=== PATIENT | male | born 1990 | race Two or more races ===

== ENCOUNTER 2017-07-29 22:15 | Emergency (ER) | payer MEDICAID, SELFPAY ==
[2017-07-29] MEDS ORDERED: Tetracaine 0.5% OPHTH SOLN/PF 4 ML BOT ONE (22:42)
== END 2017-07-29 23:13 | disposition home or self-care (01) ==
LOC: MADERS 22:15
DX: H10.9 Unspecified conjunctivitis (principal); G40.909 Epilepsy, unspecified, not intractable, without status epilepticus
CPT/HCPCS: 99283

== ENCOUNTER 2017-10-16 01:44 | Emergency (ER) | payer OTHER, SELFPAY ==
[2017-10-16] MEDS ORDERED: Morphine 10 MG/ML VIAL ONE ×2 (03:08→06:22)
[2017-10-16] MEDS ORDERED: Diazepam 5 MG TAB ONE (06:22)
[2017-10-16] MEDS ORDERED: Naproxen 500 MG TAB ONE (06:22)
--- NOTE | 2017-10-16 08:17 | CT ---
PRELIMINARY REPORT/[facility]/EMERGENTY AFTER-HOURS PROCEDURE CT Thoracic Spine Without Intravenous Contrast CLINICAL HISTORY: 27 years old, male; Injury or trauma; Injury Hit on back with 5 in pipe at work; Work related; Initia l encounter; Sprain or strain; Injury date: 10/16/17 TECHNIQUE: Axial computed tomography images of the thoracic spine without intravenous contrast. All CT scans at this facility use at least one of these dose optimization techniques: automated exposure control; mA and/or kV adjustment per patient size (includes targeted exams where dose is matched to clinical indication); or iterative reconstruction. Coronal and sagittal reformatted images were created and re viewed. COMPARISON: No relevant prior studies available. FINDINGS: Vertebrae: Mild anterior wedging at T12 without fracture line. Superior endplate Schmorl's nodes at T 7. Discs/spinal canal/neural foramina: Calcified disc protrusion at T8/T9 with mild spinal canal stenosi s. Soft tissues: Unremarkable. IMPRESSION: 1. Mild anterior wedging at T12 without fracture line. 2. Superior endplate Schmorl's nodes at T7. 3. Mild spinal canal stenosis at T8/T9 due to calcified disc protrusion. Thank you for allowing us to participate in the care of your patient. Dictated and Authenticated by: Brandt Good MD 10/16/2017 4:51 AM Central Time ([place] & [place]) FINAL REPORT CT THORACIC SPINE WITHOUT CONTRAST: HISTORY: The patient was hit in the back with a 5 inch pipe. Posttraumatic pain. COMPARISON: None. TECHNIQUE: CT thoracic spine is performed without contrast. Sagittal and coronal reformatted images are submitt ed for interpretation. FINDINGS: There is a Schmorl's node along the superior end plate of T7. Additional minimal irregularity involv ing the superior end plate of T4 and T5 is noted. There is no significant loss of vertebral body hei ght. There is minimal anterior wedging of T12 without evidence of a fracture line. Better interroga tion with thoracic spine MRI may beneficial to assess for bone edema. There is mild central canal stenosis due to a calcified disk protrusion at T8-T9. This report is in agreement with the preliminary report by [facility]. IMPRESSION: Mild anterior wedge at T12 without evidence of fracture line. Consider MRI for further interrogation if clinically warranted. CODE T POS: [facility]
--- NOTE | 2017-10-16 08:18 | CT ---
PRELIMINARY REPORT/[facility]/EMERGENTY AFTER-HOURS PROCEDURE CT Lumbar Spine Without Intravenous Contrast CLINICAL HISTORY: 27 years old, male; Injury or trauma; Injury Hit by 5 in pipe on back at work; Work related; Initial encounter; Sprain or strain, lumbar ligaments; Injury date: 10/16/17; Injury details: R/O back pain TECHNIQUE: Axial computed tomography images of the lumbar spine without intravenous contrast. All CT scans at [facility] use at least one of these dose optimization techniques: automated exposure control; mA an d/or kV adjustment per patient size (includes targeted exams where dose is matched to clinical indication); or iterative reconstruction. Coronal and sagittal reformatted images were created and re viewed. COMPARISON: No relevant prior studies available. FINDINGS: Vertebrae: Bilateral L3 pars defects. No spondylolisthesis. Discs/spinal canal/neural foramina: No high grade spinal canal stenosis. Soft tissues: Unremarkable. IMPRESSION: No acute findings. Thank you for allowing us to participate in the care of your patient. Dictated and Authenticated by: Brandt Good MD 10/16/2017 4:44 AM Central Time ([place] & [place]) FINAL REPORT CT LUMBAR SPINE WITHOUT CONTRAST: Date: 10/16/17 HISTORY: Patient struck in the back by a 5 pipe at work. Post-traumatic pain. Evaluate for fracture. COMPARISON: None. TECHNIQUE: Lumbar spine CT is performed without contrast. Coronal and sagittal reformatted images are submitted for interpretation. FINDINGS: There are bilateral pars defects at L3 without associated spondylolisthesis. There is sclerosis sugge sting a chronic process. Lumbar spine vertebral body heights are maintained. No malalignment. There is no abnormality in the retroperitoneal structures. This report is in agreement with the preliminary report by [facility]. POS: [facility]
== END 2017-10-16 06:30 | disposition home or self-care (01) ==
LOC: MADERS 01:44
DX: S30.0XXA Contusion of lower back and pelvis, initial encounter (principal); G40.909 Epilepsy, unspecified, not intractable, without status epilepticus; W22.8XXA Striking against or struck by other objects, initial encounter
CPT/HCPCS: 72128; 72131; 96374; 96376; J2270

== ENCOUNTER 2017-11-02 22:17 | Emergency (ER) | payer SELFPAY ==
[~2017-11-02 22:17] MED LIST: Sodium Chloride 0.9% 1,000 ML BAG ONE; Sodium Chloride 0.9% 100 ML BAG ONE
[2017-11-02] MEDS ORDERED: Lorazepam 2 MG/ML VIAL ONE (22:33)
[2017-11-02] MEDS ORDERED: Phenytoin Sodium 100 MG/2 ML VIAL ONE (23:24)
[2017-11-02 23:26] LABS: Anion Gap 19 mmol/L (10-20); BUN (Urea Nitrogen) 10 mg/dL (8.9-20.6); Calc. Creatinine Clearance 0 mL/min (70-130); Calcium 9.8 mg/dL (7.8-10.44); Carbon Dioxide 22 mmol/L (22-29); Chloride 104 mmol/L (98-107); Estimated GFR-MDRD 67; Glucose 125 mg/dL (70-105); Potassium 3.7 mmol/L (3.5-5.1); Sodium 141 mmol/L (136-145)
[2017-11-02 23:39] LABS: #Basophils 0.1 thou/uL (0.0-0.2); #Eosinphils 0.1 thou/uL (0.0-0.7); #Lymphocytes 2.5 thou/uL (1.20-3.40); #Monocytes 0.6 thou/uL (0.11-0.59); #Neutrophils 9.2 thou/uL (1.40-6.50); %Basophils 1.2 % (0.0-1.0); %Eosinophils 1.2 % (0.0-10.0); %Lymphocytes 19.9 % (21.0-51.0); %Monocytes 4.9 % (0.0-10.0); %Neutrophils 72.8 % (42.0-75.0); Hemoglobin 14.7 g/dL (14.0-18.0); Mean Corpuscular HGB CONC 31.6 g/dL (32.0-36.0); Mean Corpuscular Hemoglobin 21.9 pg (27.0-31.0); Mean Corpuscular Volume 69.3 fL (78.0-98.0); Mean Platelet Volume 7.5 fL (7.4-10.4); Platelet Count 344 thou/uL (130-400); RBC Distribution Width 13.7 % (11.5-14.5); Red Blood Cell (RBC) Count 6.69 mill/uL (4.70-6.10); White Blood Cell (WBC) Count 12.7 thou/uL (4.8-10.8)
[2017-11-02 23:40] LABS: Anisocytosis MARKED = >30 cells (100X) (0-5/hpf); Microcytosis MARKED = >30 cells (100X) (0-5/hpf)
[2017-11-03 00:45] LABS: Bilirubin Negative (Negative); Blood, Urine Negative (Negative); Clarity Clear (Clear); Glucose, Urine (Dipstick) Negative (Negative); Leukocyte Negative (Negative); Nitrite Negative (Negative); Protein, Urine (Dipstick) Negative (Neg-Trace)
[2017-11-03 00:55] LABS: Amphetamine Not Detected (NotDetected); Barbiturates Screen Not Detected (NotDetected); Benzodiazepine Screen Not Detected (NotDetected); Cocaine Metabolite Screen Not Detected (NotDetected); Medtox Control Line Valid? VALID (VALID); Methadone Not Detected (NotDetected); Methamphetamine Not Detected (NotDetected); Opiate Screen Not Detected (NotDetected); Oxycodone Screen Not Detected (NotDetected); Phencyclidine (PCP) Not Detected (NotDetected); THC/Cannabinoid Screen Not Detected (NotDetected); Tricyclic Screen Not Detected (NotDetected)
== END 2017-11-03 00:45 | disposition home or self-care (01) ==
LOC: MADERS 22:17
DX: G40.909 Epilepsy, unspecified, not intractable, without status epilepticus (principal)
CPT/HCPCS: 36415; 80048; 80306; 81003; 85025; 96365; 96372; J1165; J2060; J7050

== ENCOUNTER 2019-06-18 05:33 | Emergency (ER) | payer SELFPAY ==
[2019-06-18] MEDS ORDERED: Aspirin Chewable 81 MG TAB ONE (06:23)
[2019-06-18] MEDS ORDERED: Nitroglycerin 2% Ointment 1 INCH/1 GM Packet ONE (06:23)
[2019-06-18 06:37] LABS: #Basophils 0.1 thou/uL (0.0-0.2); #Eosinphils 0.3 thou/uL (0.0-0.7); #Lymphocytes 3.9 thou/uL (1.20-3.40); #Monocytes 0.9 thou/uL (0.11-0.59); #Neutrophils 5.3 thou/uL (1.40-6.50); %Basophils 0.9 % (0.0-1.0); %Eosinophils 2.3 % (0.0-10.0); %Lymphocytes 37.7 % (21.0-51.0); %Monocytes 8.8 % (0.0-10.0); %Neutrophils 50.3 % (42.0-75.0); Hemoglobin 13.5 g/dL (14.0-18.0); Hypochromia SLIGHT = 6-15 cells (100X) (0-5/hpf); MDiff Complete? YES; Mean Corpuscular Hemoglobin 20.8 pg (27.0-31.0); Mean Corpuscular Volume 71.9 fL (78.0-98.0); Mean Platelet Volume 8.6 fL (7.4-10.4); Microcytosis MODERATE=15-30 cells (100X) (0-5/hpf); Platelet Count 291 thou/uL (130-400); RBC Distribution Width 13.9 % (11.5-14.5); Red Blood Cell (RBC) Count 6.46 mill/uL (4.70-6.10); White Blood Cell (WBC) Count 10.5 thou/uL (4.8-10.8)
[2019-06-18 06:48] LABS: ALT (SGPT) 34 U/L (8-55); AST (SGOT) 24 U/L (5-34); Alkaline Phosphatase 52 U/L (40-110); Anion Gap 17 mmol/L (10-20); BUN (Urea Nitrogen) 12 mg/dL (8.9-20.6); Bilirubin, Total 0.8 mg/dL (0.2-1.2); Calc. Creatinine Clearance 0 mL/min (70-130); Carbon Dioxide 22 mmol/L (22-29); Chloride 107 mmol/L (98-107); Estimated GFR-MDRD Greater than 90; Globulin 2.6 g/dL (2.4-3.5); Glucose 104 mg/dL (70-105); Potassium 4.3 mmol/L (3.5-5.1); Protein, Total 6.6 g/dL (6.0-8.3); Sodium 142 mmol/L (136-145)
[2019-06-18 07:44] LABS: Amphetamine Not Detected (NotDetected); Barbiturates Screen Not Detected (NotDetected); Benzodiazepine Screen Not Detected (NotDetected); Cocaine Metabolite Screen Not Detected (NotDetected); Medtox Control Line Valid? VALID (VALID); Methadone Not Detected (NotDetected); Methamphetamine Not Detected (NotDetected); Opiate Screen Not Detected (NotDetected); Oxycodone Screen Not Detected (NotDetected); Phencyclidine (PCP) Not Detected (NotDetected); THC/Cannabinoid Screen Not Detected (NotDetected); Tricyclic Screen Not Detected (NotDetected)
--- NOTE | 2019-06-18 08:15 | RAD ---
Chest one view HISTORY: Chest pain. FINDINGS: Cardiac silhouette is magnified by projection. Pulmonary vasculature is upper limits of nor mal and accentuated by shallow inspiration. Mediastinum is midline. No lobar consolidation or evidence of pneumothorax. IMPRESSION: No active cardiopulmonary abnormalities are demonstrated.
== END 2019-06-18 08:41 | disposition home or self-care (01) ==
LOC: MADERS 05:33
DX: R07.9 Chest pain, unspecified (principal); G40.909 Epilepsy, unspecified, not intractable, without status epilepticus
CPT/HCPCS: 36415; 71045; 80053; 80306; 83880; 84484; 85025; 93005

== ENCOUNTER 2021-01-22 15:50 | Emergency (ER) | payer SELFPAY ==
[~2021-01-22 15:50] MED LIST changes: +Iopamidol 370 76% 125 ML VIAL FS ONE; -Sodium Chloride 0.9% 1,000 ML BAG ONE
[2021-01-22] MEDS ORDERED: Ketorolac Tromethamine 30 MG/ML VIAL ONE (16:17)
[2021-01-22 16:52] LABS: Bilirubin Negative (Negative); Blood, Urine Negative (Negative); Clarity Clear (Clear); Glucose, Urine (Dipstick) Negative (Negative); Ketone, Urine Negative (Negative); Leukocyte Negative (Negative); Nitrite Negative (Negative); Protein, Urine (Dipstick) Trace mg/dL (Neg-Trace)
[2021-01-22 16:54] LABS: #Basophils 0.2 thou/uL (0.0-0.2); #Eosinphils 0.1 thou/uL (0.0-0.7); #Lymphocytes 3.1 thou/uL (1.20-3.40); #Neutrophils 9.1 thou/uL (1.40-6.50); %Basophils 1.2 % (0.0-1.0); %Eosinophils 0.7 % (0.0-10.0); %Lymphocytes 22.7 % (21.0-51.0); %Monocytes 7.8 % (0.0-10.0); %Neutrophils 67.6 % (42.0-75.0); Hemoglobin 14.6 g/dL (14.0-18.0); Mean Corpuscular HGB CONC 29.4 g/dL (32.0-36.0); Mean Corpuscular Hemoglobin 20.9 pg (27.0-31.0); Mean Corpuscular Volume 71.3 fL (78.0-98.0); Platelet Count 653 thou/uL (130-400); RBC Distribution Width 13.2 % (11.5-14.5); Red Blood Cell (RBC) Count 6.96 mill/uL (4.70-6.10); White Blood Cell (WBC) Count 13.4 thou/uL (4.8-10.8)
[2021-01-22 16:55] LABS: Anisocytosis SLIGHT = 6-15 cells (100X) (0-5/hpf); MDiff Complete? YES; Microcytosis SLIGHT = 6-15 cells (100X) (0-5/hpf); Platelet Morphology Comment Appears Increased
[2021-01-22 16:56] LABS: ALT (SGPT) 49 U/L (8-55); AST (SGOT) 30 U/L (5-34); Albumin 3.6 g/dL (3.5-5.0); Alkaline Phosphatase 52 U/L (40-110); Anion Gap 16 mmol/L (10-20); BUN (Urea Nitrogen) 7 mg/dL (8.9-20.6); Calc. Creatinine Clearance 0 mL/min (70-130); Calcium 9.6 mg/dL (7.8-10.44); Carbon Dioxide 24 mmol/L (22-29); Chloride 102 mmol/L (98-107); Globulin 4.4 g/dL (2.4-3.5); Glucose 120 mg/dL (70-105); Potassium 4.3 mmol/L (3.5-5.1); Sodium 138 mmol/L (136-145)
[2021-01-22] MEDS ORDERED: Pantoprazole 40 MG VIAL ONE (18:56)
[2021-01-22] MEDS ORDERED: Heparin 25,000 units/D5W 500 ML ONE (19:41)
[2021-01-22] MEDS ORDERED: Heparin 10,000 UNITS/ 10 ML VIAL ONE (19:41)
[2021-01-22 19:42] LABS: PTT 29.9 sec (22.9-36.1); Prothrombin Time 13.3 sec (12.0-14.7)
[2021-01-22 20:38] LABS: SARS-CoV-2 NAA Rapid Test DETECTED (NotDetected)
== END 2021-01-22 21:17 | disposition short-term general hospital (02) ==
LOC: MADERS 15:50
DX: U07.1 COVID-19 (principal); J12.82 Pneumonia due to coronavirus disease 2019; I26.99 Other pulmonary embolism without acute cor pulmonale; G47.30 Sleep apnea, unspecified; G40.909 Epilepsy, unspecified, not intractable, without status epilepticus
CPT/HCPCS: 71275; 74176; 80053; 81003; 82274; 85025; 85610; 85730; 96365; 96375; 96376; C9113; J1644; J1885; J3490; Q9967; U0002

== ENCOUNTER 2021-05-03 22:15 | Emergency (ER) | payer BC ==
[2021-05-03] MEDS ORDERED: Iopamidol 370 76% 125 ML VIAL FS ONE (22:16)
[2021-05-03] MEDS ORDERED: Sodium Chloride 0.9% 100 ML BAG FS ONE (22:16)
== END 2021-05-04 00:53 | disposition home or self-care (01) ==
LOC: MADERS 22:15
DX: H93.A1 Pulsatile tinnitus, right ear (principal); Z86.16 Personal history of COVID-19
CPT/HCPCS: 70450; 70496; Q9967

== ENCOUNTER 2021-11-05 17:46 | Emergency (ER) | payer BC ==
[2021-11-05] MEDS ORDERED: Sodium Chloride 0.9% 1,000 ML ONE (18:59)
[2021-11-05 19:06] LABS: Mean Corpuscular HGB CONC 28.8 g/dL (32.0-36.0); Mean Corpuscular Hemoglobin 20.9 pg (27.0-31.0); Mean Corpuscular Volume 72.6 fL (78.0-98.0); Mean Platelet Volume 9.9 fL (7.4-10.4); Platelet Count 285 thou/uL (130-400); Red Blood Cell (RBC) Count 6.71 mill/uL (4.70-6.10); White Blood Cell (WBC) Count 8.9 thou/uL (4.8-10.8)
[2021-11-05 19:16] LABS: Anion Gap 13 mmol/L (10-20); BUN (Urea Nitrogen) 15 mg/dL (8.9-20.6); CK (CPK) 301 U/L (30-200); Calc. Creatinine Clearance 0 mL/min (70-130); Calcium 9.5 mg/dL (7.8-10.44); Carbon Dioxide 28 mmol/L (22-29); Chloride 106 mmol/L (98-107); Estimated GFR 68; Glucose 91 mg/dL (70-105); Potassium 4.5 mmol/L (3.5-5.1); Sodium 142 mmol/L (136-145)
[2021-11-05 19:24] LABS: #Basophils 0.1 thou/uL (0.0-0.2); #Eosinphils 0.3 thou/uL (0.0-0.7); #Lymphocytes 2.9 thou/uL (1.20-3.40); #Monocytes 0.8 thou/uL (0.11-0.59); #Neutrophils 4.8 thou/uL (1.40-6.50); %Basophils 1.5 % (0.0-1.0); %Eosinophils 3.6 % (0.0-10.0); %Lymphocytes 32.1 % (21.0-51.0); %Neutrophils 53.7 % (42.0-75.0); Hypochromia SLIGHT = 6-15 cells (100X) (0-5/hpf); MDiff Complete? YES; Microcytosis SLIGHT = 6-15 cells (100X) (0-5/hpf); Platelet Morphology Comment Appears Adequate
== END 2021-11-05 20:00 | disposition home or self-care (01) ==
LOC: MADERS 17:46
DX: T67.5XXA Heat exhaustion, unspecified, initial encounter (principal); G40.909 Epilepsy, unspecified, not intractable, without status epilepticus; G47.30 Sleep apnea, unspecified; F17.290 Nicotine dependence, other tobacco product, uncomplicated; Z86.711 Personal history of pulmonary embolism
CPT/HCPCS: 80048; 82550; 85025; 96360; J7050

== ENCOUNTER 2022-10-30 07:48 | Emergency (ER) | payer SELFPAY ==
[2022-10-30] MEDS ORDERED: Acetaminophen 500 MG TAB ONE (08:51)
[2022-10-30] MEDS ORDERED: Ondansetron ODT 4 MG TAB ONE (08:59)
[2022-10-30 09:49] LABS: SARS-CoV-2 NAA Rapid Test DETECTED (NotDetected)
[2022-10-30 10:22] LABS: ALT (SGPT) 24 U/L (8-55); AST (SGOT) 21 U/L (5-34); Albumin 4.3 g/dL (3.5-5.0); Alkaline Phosphatase 53 U/L (40-110); Anion Gap 15 mmol/L (10-20); BUN (Urea Nitrogen) 10 mg/dL (8.9-20.6); Bilirubin, Total 1.4 mg/dL (0.2-1.2); Calc. Creatinine Clearance 0 mL/min (70-130); Calcium 9.5 mg/dL (7.8-10.44); Carbon Dioxide 25 mmol/L (22-29); Chloride 102 mmol/L (98-107); Estimated GFR 75; Glucose 115 mg/dL (70-105); Magnesium 1.7 mg/dL (1.6-2.6); Potassium 4.5 mmol/L (3.5-5.1); Protein, Total 7.3 g/dL (6.0-8.3); Sodium 137 mmol/L (136-145)
[2022-10-30 10:36] LABS: Hemoglobin 15.1 g/dL (14.0-18.0); Mean Corpuscular HGB CONC 30.7 g/dL (32.0-36.0); Mean Corpuscular Volume 71.6 fl (78.0-98.0); Mean Platelet Volume 9.5 fL (7.4-10.4); Platelet Count 282 10x3/uL (130-400); RBC Distribution Width 14.6 % (11.5-14.5); Red Blood Cell (RBC) Count 6.86 mill/uL (4.70-6.10); White Blood Cell (WBC) Count 11.3 10x3/uL (4.8-10.8)
[2022-10-30 10:37] LABS: Anisocytosis SLIGHT = 6-15 cells (100X) (0-5/hpf); Band 2 % (5-11); Lymphocytes 14 % (21-51); MDiff Complete? YES; Manual Diff?? YES; Monocytes 4 % (0-10); Neutrophil 80 % (42-75); Platelet Adequacy Comment Appears Adequate
== END 2022-10-30 11:00 | disposition home or self-care (01) ==
LOC: MADERS 07:48
DX: U07.1 COVID-19 (principal); R11.2 Nausea with vomiting, unspecified; F17.290 Nicotine dependence, other tobacco product, uncomplicated
CPT/HCPCS: 71046; 80053; 83735; 85025; 85379; 87081; 87430; 99284; Q0162

== ENCOUNTER 2023-02-20 20:59 | Emergency (ER) | payer SELFPAY ==
[~2023-02-20 20:59] MED LIST changes: +Iopamidol 370 76% 100 ML VIAL ONE; -Iopamidol 370 76% 125 ML VIAL FS ONE; -Sodium Chloride 0.9% 100 ML BAG ONE
[2023-02-20] MEDS ORDERED: Ketorolac Tromethamine 30 MG/ML VIAL ONE (21:51)
[2023-02-20] MEDS ORDERED: Sodium Chloride 0.9% 1,000 ML ONE (21:51)
[2023-02-20] MEDS ORDERED: Ondansetron PF 4 MG/2 ML Vial ONE (21:51)
[2023-02-20 22:02] LABS: Bilirubin Negative (Negative); Blood, Urine Negative (Negative); Clarity Clear (Clear); Glucose, Urine (Dipstick) Negative (Negative); Ketone, Urine Negative (Negative); Leukocyte Negative (Negative); Nitrite Negative (Negative); Protein, Urine (Dipstick) Negative (Neg-Trace); Specific Gravity, Urine 1.025 (1.005-1.030)
[2023-02-20 22:03] LABS: CAUTI Indications for Culture Dysuria,urgency,freq
[2023-02-20 22:04] LABS: Bacteria/HPF Rare-Few HPF (None Seen); RBC/HPF 0-3 HPF (0-3); Squamous Epithelial 0-3 HPF (0-3); WBC/HPF 0-3 HPF (0-3)
[2023-02-20 22:05] LABS: Urine Culture Reflex No No
[2023-02-20 22:28] LABS: ALT (SGPT) 26 U/L (8-55); AST (SGOT) 26 U/L (5-34); Albumin 4.1 g/dL (3.5-5.0); Alkaline Phosphatase 45 U/L (40-110); Anion Gap 16 mmol/L (10-20); BUN (Urea Nitrogen) 14 mg/dL (8.9-20.6); Calc. Creatinine Clearance 0 mL/min (70-130); Calcium 9.2 mg/dL (7.8-10.44); Carbon Dioxide 25 mmol/L (22-29); Chloride 103 mmol/L (98-107); Estimated GFR 73; Globulin 3.2 g/dL (2.4-3.5); Glucose 79 mg/dL (70-105); Protein, Total 7.3 g/dL (6.0-8.3); Sodium 140 mmol/L (136-145)
[2023-02-20 22:32] LABS: #Basophils 0.1 thou/uL (0.0-0.2); #Eosinphils 0.2 thou/uL (0.0-0.7); #Lymphocytes 3.1 thou/uL (1.20-3.40); #Monocytes 0.9 thou/uL (0.11-0.59); #Neutrophils 5.1 thou/uL (1.40-6.50); %Basophils 1.5 % (0.0-1.0); %Monocytes 9.8 % (0.0-10.0); %Neutrophils 53.6 % (42.0-75.0); Anisocytosis SLIGHT = 6-15 cells (100X) (0-5/hpf); Hematocrit 49.1 % (42.0-52.0); Hemoglobin 14.4 g/dL (14.0-18.0); Hypochromia SLIGHT = 6-15 cells (100X) (0-5/hpf); MDiff Complete? YES; Mean Corpuscular HGB CONC 29.2 g/dL (32.0-36.0); Mean Corpuscular Hemoglobin 21.8 pg (27.0-31.0); Mean Corpuscular Volume 74.4 fl (78.0-98.0); Mean Platelet Volume 9.2 fL (7.4-10.4); Microcytosis SLIGHT = 6-15 cells (100X) (0-5/hpf); Platelet Adequacy Comment Appears Adequate; Platelet Count 273 10x3/uL (130-400); RBC Distribution Width 14.6 % (11.5-14.5); White Blood Cell (WBC) Count 9.5 10x3/uL (4.8-10.8)
== END 2023-02-20 23:00 | disposition home or self-care (01) ==
LOC: MADERS 20:59
DX: R10.32 Left lower quadrant pain (principal); R30.0 Dysuria; R11.0 Nausea; F17.290 Nicotine dependence, other tobacco product, uncomplicated
CPT/HCPCS: 74177; 80053; 81001; 85025; 96361; 96374; 96375; J1885; J2405; J7050; Q9967

== ENCOUNTER 2023-04-20 10:45 | Emergency (ER) | payer SELFPAY | END 2023-04-20 11:38 | disposition home or self-care (01) | LOC: MADERS 10:45 | DX: S80.02XA Contusion of left knee, initial encounter (principal); F17.290 Nicotine dependence, other tobacco product, uncomplicated; Z86.711 Personal history of pulmonary embolism; W23.0XXA Caught, crushed, jammed, or pinched between moving objects, initial encounter ==

== ENCOUNTER 2023-06-09 17:28 | Emergency (ER) | payer SELFPAY ==
[2023-06-09] MEDS ORDERED: Ketorolac Tromethamine 30 MG (1 mL) VIAL ONE (17:48)
== END 2023-06-09 18:10 | disposition home or self-care (01) ==
LOC: MADERS 17:28
DX: K08.89 Other specified disorders of teeth and supporting structures (principal); F17.290 Nicotine dependence, other tobacco product, uncomplicated; Z55.6 Problems related to health literacy
CPT/HCPCS: 64400; 96372; J1885

== ENCOUNTER 2023-08-31 23:50 | Emergency (ER) | payer OTHER, SELFPAY ==
[2023-09-01 00:41] LABS: ALT (SGPT) 27 U/L (8-55); AST (SGOT) 25 U/L (5-34); Albumin 4.1 g/dL (3.5-5.0); Alkaline Phosphatase 47 U/L (40-110); Anion Gap 19 mmol/L (10-20); BUN (Urea Nitrogen) 12 mg/dL (8.9-20.6); Bilirubin, Total 0.8 mg/dL (0.2-1.2); Calc. Creatinine Clearance 0 mL/min (70-130); Calcium 9.5 mg/dL (7.8-10.44); Chloride 107 mmol/L (98-107); Estimated GFR 67; Globulin 2.8 g/dL (2.4-3.5); Glucose 117 mg/dL (70-105); Potassium 3.8 mmol/L (3.5-5.1); Protein, Total 6.9 g/dL (6.0-8.3); Sodium 141 mmol/L (136-145); Troponin I Less than 0.010 ng/mL (< 0.028)
[2023-09-01 00:43] LABS: Acetaminophen Less than 10 mcg/mL (10.0-30.0); Alcohol 53.9 mg/dL (Less than 10); CK (CPK) 392 U/L (30-200); Lipase 27 U/L (8-78); Magnesium 1.8 mg/dL (1.6-2.6); Salicylate Less than 8.0 mg/dL (15.0-30.0)
[2023-09-01] MEDS ORDERED: Sodium Chloride 0.9% 1,000 ML ONE (00:45)
[2023-09-01 00:48] LABS: #Basophils 0.1 thou/uL (0.0-0.2); #Eosinphils 0.3 thou/uL (0.0-0.7); #Monocytes 0.4 thou/uL (0.11-0.59); #Neutrophils 4.8 thou/uL (1.40-6.50); %Basophils 1.3 % (0.0-1.0); %Eosinophils 2.7 % (0.0-10.0); %Lymphocytes 41.7 % (21.0-51.0); %Monocytes 4.1 % (0.0-10.0); %Neutrophils 50.1 % (42.0-75.0); Anisocytosis SLIGHT = 6-15 cells (100X) (0-5/hpf); Hematocrit 48.3 % (42.0-52.0); Hemoglobin 14.3 g/dL (14.0-18.0); MDiff Complete? YES; Mean Corpuscular HGB CONC 29.6 g/dL (32.0-36.0); Mean Corpuscular Hemoglobin 21.2 pg (27.0-31.0); Mean Corpuscular Volume 71.5 fl (78.0-98.0); Mean Platelet Volume 7.3 fL (7.4-10.4); Platelet Adequacy Comment Appears Adequate; Platelet Count 320 10x3/uL (130-400); RBC Distribution Width 14.8 % (11.5-14.5); Red Blood Cell (RBC) Count 6.76 mill/uL (4.70-6.10); Target Cells SLIGHT = 2-5 cells (100X) (0-1/hpf); White Blood Cell (WBC) Count 9.5 10x3/uL (4.8-10.8)
[2023-09-01 00:49] LABS: Carbon Dioxide 19 mmol/L (22-29)
[2023-09-01] MEDS ORDERED: Sodium Chloride 0.9% 2,000 ML ONE (01:08)
[2023-09-01] MEDS ORDERED: Ipratropium/Albuterol 3 ML NEB ONE (01:23)
[2023-09-01] MEDS ORDERED: methylPREDNISolone Sod Succ/PF 125 MG/2 ML VIAL ONE (01:24)
[2023-09-01 02:35] LABS: Amphetamine Not Detected (NotDetected); Barbiturates Screen Not Detected (NotDetected); Benzodiazepine Screen Not Detected (NotDetected); Cocaine Metabolite Screen Not Detected (NotDetected); Methadone Not Detected (NotDetected); Methamphetamine Not Detected (NotDetected); Opiate Screen Not Detected (NotDetected); Oxycodone Screen Not Detected (NotDetected); Phencyclidine (PCP) Not Detected (NotDetected); THC/Cannabinoid Screen Not Detected (NotDetected); Tricyclic Screen Not Detected (NotDetected)
[2023-09-01 03:12] LABS: Lactic Acid 1.7 mmol/L (0.5-2.2)
[2023-09-01 03:23] LABS: Troponin I Less than 0.010 ng/mL (< 0.028)
== END 2023-09-01 03:48 | disposition home or self-care (01) ==
LOC: MADERS 23:50
DX: E86.0 Dehydration (principal); N17.9 Acute kidney failure, unspecified; J98.8 Other specified respiratory disorders; F17.290 Nicotine dependence, other tobacco product, uncomplicated
CPT/HCPCS: 71275; 80053; 80306; 80307; 82550; 83605; 83690; 83735; 83880; 84484; 85025; 85379; 93005; 96361; 96374; J2930; J7050; J7620

== ENCOUNTER 2023-12-09 19:28 | Emergency (ER) | payer OTHER ==
[2023-12-09] MEDS ORDERED: Ibuprofen 600 MG TAB ONE (20:09)
[2023-12-09 20:45] LABS: SARS-CoV-2 E Target Negative; SARS-CoV-2 N2 Target Negative; SARS-CoV-2 NAA Rapid Test Not Detected (NotDetected); SARS-CoV-2 RdRP gene Negative
== END 2023-12-09 21:17 | disposition home or self-care (01) ==
LOC: MADERS 19:28
DX: B34.9 Viral infection, unspecified (principal); F17.290 Nicotine dependence, other tobacco product, uncomplicated
CPT/HCPCS: 71045; 87804; U0002

== ENCOUNTER 2024-04-04 16:04 | Emergency (ER) | payer OTHER | END 2024-04-04 17:50 | disposition home or self-care (01) | LOC: MADERS 16:04 | DX: G56.01 Carpal tunnel syndrome, right upper limb (principal); F17.290 Nicotine dependence, other tobacco product, uncomplicated | CPT/HCPCS: 99283 ==

== ENCOUNTER 2024-04-08 13:38 | Emergency (ER) | payer OTHER ==
[2024-04-08] MEDS ORDERED: Fluorescein Opthalmic Strip ONE (13:45)
[2024-04-08] MEDS ORDERED: Tetracaine 0.5% PF 4 ML BOT ONE (13:46)
== END 2024-04-08 14:15 | disposition home or self-care (01) ==
LOC: MADERS 13:38
DX: H57.11 Ocular pain, right eye (principal); F17.290 Nicotine dependence, other tobacco product, uncomplicated
CPT/HCPCS: 99283